=== PATIENT | male | born 2005 | race Caucasian/White ===

== ENCOUNTER 2023-04-14 10:21 | Emergency (ER) | payer SELFPAY ==
[~2023-04-14] VITALS: Ht 180.3 cm; Wt 117.9 kg
--- NOTE | 2023-04-14 11:16 | NUR ---
I have reviewed and agree with all interventions, assessments performed and documented by [employer]
[2023-04-14] MEDS ORDERED: NAPR-56 PO (12:07)
[2023-04-14 12:14] VITALS: BP 136/61; PULSE 69; RESP 18; TEMP 98.1; O2SAT 99
== END 2023-04-14 12:15 | disposition home or self-care (01) ==
LOC: ER 10:23
DX: S06.0X0A Concussion without loss of consciousness, initial encounter (principal); W22.8XXA Striking against or struck by other objects, initial encounter; Y93.89 Activity, other specified; Y92.89 Other specified places as the place of occurrence of the external cause; Y99.8 Other external cause status
CPT/HCPCS: 99282